=== PATIENT | male | born 1980 | race Caucasian/White ===

== ENCOUNTER 2016-10-26 18:32 | Emergency (ER) | payer OTHER ==
[2016-10-26] MEDS ORDERED: DEXAMETHASONE 10 MG/ML VIAL PO STA (18:58)
[2016-10-26] MEDS ORDERED: IBUPROFEN 800 MG TABLET PO STA (18:59)
[2016-10-26] MEDS ORDERED: IBUPROFEN 800 MG TABLET PO ONE (18:59)
[2016-10-26] MEDS ORDERED: DEXAMETHASONE 10 MG/ML VIAL ONE (18:59)
[2016-10-26] MEDS ORDERED: PENICILLIN VK 250 MG TABLET PO STA (19:16)
[2016-10-26] MEDS ORDERED: PENICILLIN VK 250 MG TABLET PO ONE (19:19)
== END 2016-10-26 19:23 | disposition home or self-care (01) ==
DX: J02.0 Streptococcal pharyngitis (principal)
CPT/HCPCS: 87430; 99283; A9270

== ENCOUNTER 2017-01-12 12:38 | Emergency (ER) | payer OTHER ==
[2017-01-12] MEDS ORDERED: KETOROLAC 60 MG/2 ML VIAL IM STA (13:30)
--- NOTE | 2017-01-12 13:32 | ED Physician Documentation ---
PD HPI BACK PAIN - Stated complaint Stated Complaint: BACK PX - Chief complaint Chief Complaint: Back Pain - History obtained from History obtained from: Patient - History of Present Illness Timing - onset: Yesterday Timing - duration: Days (1) Timing - details: Gradual onset Pain level max: 5 Pain level now: 3 Location: Mid, Right Quality: Pain, Spasm Associated symptoms: No: Fever, Weakness, Numbness, Incontinent of urine, Unable to urinate, Hematuria, Incontinent of stool Improves with: Rest Worsened by: Movement Contributing factors: Lifting (States lifted weight on , but did not start to feel the pain until yesterday) Similar symptoms before: Has not had sx before Recently seen: Not recently seen Review of Systems Constitutional: denies: Fever, Chills Ears: denies: Ear pain Nose: denies: Rhinorrhea / runny nose, Congestion Respiratory: denies: Cough GI: denies: Abdominal Pain, Vomiting, Diarrhea Musculoskeletal: denies: Neck pain Neurologic: denies: Focal weakness, Numbness, Headache PD PAST MEDICAL HISTORY - Past Medical History Past Medical History: No - Past Surgical History Past Surgical History: No - Present Medications Home Medications: Ambulatory Orders Medication Instructions Recorded Confirmed Cyclobenzaprine [Flexeril] 10 mg PO TID PRN #20 tablet 01/12/17 Meloxicam [Mobic] 7.5 mg PO BID PRN #20 tablet 01/12/17 - Allergies Allergies/Adverse Reactions: Allergies Allergy/AdvReac Type Severity Reaction Status Date / Time No Known Drug Allergies Allergy Verified 07/06/14 13:16 - Social History Does the pt smoke?: No Smoking Status: Never smoker Does the pt drink ETOH?: Yes Does the pt have substance abuse?: No - Immunizations Immunizations are current?: Yes - POLST Patient has POLST: No PD ED PE NORMAL - Vitals Vital signs reviewed: Yes - General General: Alert and oriented X 3, No acute distress, Well developed/nourished - HEENT HEENT: PERRL, Moist mucous membranes, Pharynx benign - Neck Neck: Supple, no meningeal sign, No bony TTP - Cardiac Cardiac: RRR, Strong equal pulses - Respiratory Respiratory: No respiratory distress, Clear bilaterally - Abdomen Abdomen: Soft, Non tender, Non distended - Back Back: No spinal TTP (No tenderness palpation or percussion. There is pain with movement of the right arm across the chest, pulls in the rhomboid/trapezius area. States that this is the pain that he is feeling. There is some relief of pain with light massage. No bony tenderness over the ribs.) - Derm Derm: Warm and dry - Extremities Extremities: No tenderness to palpate - Neuro Neuro: Alert and oriented X 3 - Psych Psych: Normal mood, Normal affect Results - Vitals Vitals: Vital Signs - 24 hr 01/12/17 12:43 Temperature 36.8 C Heart Rate 78 Respiratory 18 Rate Blood Pressure 113/66 O2 Saturation 98 Oxygen O2 Source Room air PD MEDICAL DECISION MAKING - ED course Complexity details: considered differential (no cauda equina, no spinal epidural abscess, no fracture, no aortic dissection or evidence of aneursym rupture), d/w patient ED course: Patient is a 36-year-old male who presents to the emergency department with what appears to be trapezius/rhomboid strain. Pain is present with full flexion of the neck that he feels pulling near the subscapular area on the right side as well as movement of the right arm across the chest. Otherwise there is no pain with range of motion of the remainder of the neck. No evidence of meningitis. No fevers. No headache. No neck pain or tenderness. Given Toradol here and feels better. Will place on pain medication and muscle relaxants for home and follow-up with his doctor. Patient counseled regarding signs and symptoms for which I believe and urgent re-evaluation would be necessary. Patient with good understanding of and agreement to plan and is comfortable going home at this time This document was made in part using voice recognition software. While efforts are made to proofread this document, sound alike and grammatical errors may occur. Departure - Departure Disposition: Home, Self Care Clinical Impression: Muscle strain Back strain Qualifiers: Encounter type: initial encounter Qualified Code(s): S39.012A - Strain of muscle, fascia and tendon of lower back, initial encounter Condition: Good Instructions: ED Neck Back Pain General Follow-Up: your,doctor in 1 week [Other] Prescriptions: Cyclobenzaprine [Flexeril] 10 mg PO TID PRN #20 tablet PRN Reason: Spasms Meloxicam [Mobic] 7.5 mg PO BID PRN #20 tablet PRN Reason: pain Comments: Return if you worsen. This should improve over the next few days. You can use heat at home to help with the muscle strain as well. Return immediately if you develop fevers. Do not drive or operate heavy machinery while taking the Flexeril.
[2017-01-12] MEDS ORDERED: KETOROLAC 60 MG/2 ML VIAL ONE (13:33)
[2017-01-12 13:50] VITALS: BP 118/72
== END 2017-01-12 13:55 | disposition home or self-care (01) ==
LOC: ED 12:38
DX: S39.012A Strain of muscle, fascia and tendon of lower back, initial encounter (principal); X50.0XXA Overexertion from strenuous movement or load, initial encounter
CPT/HCPCS: 99283

== ENCOUNTER 2017-12-04 09:12 | Outpatient (CLI) | payer OTHER ==
[2017-12-04] MEDS ORDERED: IOTHALAMATE MEGLUMINE 50 ML VIAL ONE (09:31)
[2017-12-04] MEDS ORDERED: GADOPENTETATE DIMEGLUMINE 5 ML VIAL IVP ONE ×2 (09:31→10:06)
[2017-12-04] MEDS ORDERED: BUFFERED LIDOCAINE 10 ML SYRINGE IU ONE (10:06)
[2017-12-04] MEDS ORDERED: IOTHALAMATE MEGLUMINE 50 ML VIAL IVP ONE (10:06)
--- NOTE | 2017-12-04 11:22 | XRAY Report ---
FLUOROSCOPICALLY-GUIDED RIGHT SHOULDER INJECTION FOR MR ARTHROGRAM: 12/04/2017 CLINICAL INDICATION: Pain in right shoulder. TECHNIQUE/FINDINGS: Following obtaining informed consent, the patient's right shoulder was prepped and draped in the usual sterile fashion. The skin and soft tissues were anesthetized with lidocaine. A spinal needle was inserted into the glenohumeral joint space, and following confirmation of needle positioning, a combination of iodinated contrast, dilute gadolinium, and lidocaine was injected intraarticularly. The patient tolerated the procedure well. No immediate complications. Spot image does demonstrate some contrast extravasation into the subscapularis muscle, related to injection. IMPRESSION: SUCCESSFUL RIGHT SHOULDER INJECTION FOR MR ARTHROGRAM. FLUOROSCOPY TIME: 27 seconds; one spot image obtained. TD: 12/04/2017 11:02
--- NOTE | 2017-12-04 16:49 | MRI Report ---
EXAM: RIGHT SHOULDER MRI ARTHROGRAM WITH CONTRAST EXAM DATE: 12/04/2017 10:41 AM. CLINICAL HISTORY: Right shoulder pain. COMPARISON: None. TECHNIQUE: Multiplanar, multisequence T1-weighted and fluid-sensitive sequences of the shoulder after an arthrographic injection of dilute gadolinium, dictated under a separate exam. Other: None. FINDINGS: Acromioclavicular Region: The acromion is type II. The acromioclavicular joint is unremarkable. The c oracoacromial and coracoclavicular ligaments are intact. There is no contrast or fluid in the subacro mial/subdeltoid bursa. Glenohumeral Region: No subluxation. No loose bodies. The articular cartilage is unremarkable. The gl enohumeral ligaments and joint capsule are unremarkable. Bone Marrow: Small bone in the humeral head. No acute fracture. Normal marrow signal. Labrum: The labrum is unremarkable. Biceps Tendon: The long head of the biceps tendon and biceps katey are intact. Musculature/Rotator Cuff: The subscapularis, supraspinatus, infraspinatus, and teres minor tendons ar e intact. Contrast solution within the superior aspect of the subscapularis tendon which is probably iatrogenically related to the injection procedure. No edema or fatty atrophy. Other: The subcutaneous tissues are unremarkable. IMPRESSION: 1. Unremarkable MR arthrogram of the right shoulder. No rotator cuff or labral tear. [facility] MUSCULOSKELET[facility] RADIOLOGY SECTION Referring Provider Line: [phone] SITE ID: [id number]
== END 2017-12-04 09:13 | disposition home or self-care (01) ==
LOC: DI 09:12
PROVIDERS: ATTEND Nurse Practitioner Family
DX: M25.511 Pain in right shoulder (principal)
CPT/HCPCS: 23350; 73222; 77002; Q9961